=== PATIENT | male | born 1975 ===

== ENCOUNTER 2019-01-22 03:12 | Emergency (ER) | payer SELFPAY ==
[2019-01-22 03:28] VITALS: TEMP 98.1
--- NOTE | 2019-01-22 04:36 | ED PDOC ---
Arrival/HPI - General Chief Complaint: Substance Abuse Time Seen by Provider: 01/22/19 03:27 Historian: Patient - History of Present Illness Narrative History of Present Illness (Text): 01/22/19 04:32 43 year old male, whose past medical history includes substance abuse, presents to the emergency department by EMS, after being found sleeping in the [place] of an apartment building. Patient states he has a history of heroin use, but is on methadone. Patient denies any illicit drug use. Patient states he is homeless and needed a place to sleep. Patient denies any alcohol use. Patient denies any somatic complaints, and is requesting some cereal and milk. Patient denies any fevers, chills, headache, dizziness, chest pain, shortness of breath, dyspnea on exertion, cough, abdominal pain, nausea, vomiting, diarrhea, back p ain, neck pain, or any other complaint. Time/Duration: Prior to Arrival Symptom Onset: Gradual Symptom Course: Unchanged Activities at Onset: Light Context: Street Past Medical History - Provider Review Nursing Documentation Reviewed: Yes - Psychiatric Hx Substance Use: Yes Family/Social History - Physician Review Nursing Documentation Reviewed: Yes Family/Social History: No Known Family HX Smoking Status: Light Smoker < 10 Cigarettes Daily Hx Alcohol Use: Yes Frequency of alcohol use: Socially Hx Substance Use: Yes Substance used: Methadone Allergies/Home Meds Allergies/Adverse Reactions: Allergies No Known Allergies Allergy (Verified 01/22/19 03:21) Home Medications: Home Meds Medication Instructions Recorded Confirmed Unobtainable 01/22/19 01/22/19 Review of Systems - Physician Review All systems were reviewed & negative as marked: Yes - Review of Systems Constitutional: absent: Fevers, Night Sweats Respiratory: absent: SOB, Cough Cardiovascular: absent: Chest Pain, KELLY Gastrointestinal: absent: Abdominal Pain, Diarrhea, Nausea, Vomiting Musculoskeletal: absent: Back Pain, Neck Pain Neurological: absent: Headache, Dizziness Physical Exam Vital Signs Reviewed: Yes Vital Signs Temp Pulse Resp BP Pulse Ox 01/22/19 03:23 98.1 F 61 16 112/63 99 Temperature: Afebrile Blood Pressure: Normal Pulse: Regular Respiratory Rate: Normal Appearance: Positive for: Well-Appearing, Non-Toxic, Comfortable Pain Distress: None Mental Status: Positive for: Alert and Oriented X 3 - Systems Exam Head: Present: Atraumatic, Normocephalic Pupils: Present: PERRL Extroacular Muscles: Present: EOMI Conjunctiva: Present: Normal Mouth: Present: Moist Mucous Membranes Neck: Present: Normal Range of Motion Respiratory/Chest: Present: Clear to Auscultation, Good Air Exchange. No: Respiratory Distress, Accessory Muscle Use Cardiovascular: Present: Regular Rate and Rhythm, Normal S1, S2. No: Murmurs Abdomen: No: Tenderness, Distention, Peritoneal Signs Back: Present: Normal Inspection Upper Extremity: Present: Normal Inspection. No: Cyanosis, Edema Lower Extremity: Present: Normal Inspection. No: Edema Neurological: Present: GCS=15, CN II-XII Intact, Speech Normal Skin: Present: Warm, Dry, Normal Color. No: Rashes Psychiatric: Present: Alert, Oriented x 3, Normal Insight, Normal Concentration - Scribe Statement The provider has reviewed the documentation as recorded by the Scribe Daniel Mena Provider Scribe Attestation: All medical record entries made by the Scribe were at my direction and personally dictated by me. I have reviewed the chart and agree that the record accurately reflects my personal performance of the history, physical exam, medical decision making, and the department course for this patient. I have also personally directed, reviewed, and agree with the discharge instructions and disposition. Disposition/Present on Arrival - Present on Arrival Any Indicators Present on Arrival: No History of DVT/PE: No History of Uncontrolled Diabetes: No Urinary Catheter: No History of Decub. Ulcer: No History Surgical Site Infection Following: None - Disposition Have Diagnosis and Disposition been Completed?: Yes Diagnosis: Substance abuse, Homelessness Disposition: HOME/ ROUTINE Disposition Time: 06:24 Patient Plan: Discharge Condition: GOOD Referrals: [facility] [Outside] - Follow up with primary Forms: [employer] (Lao)
[2019-01-22 05:48] VITALS: RESP 18; O2SAT 98
[2019-01-22 06:50] VITALS: BP 102/60; PULSE 67
== END 2019-01-22 06:44 | disposition home or self-care (01) ==
LOC: ED 03:12
DX: F19.10 Other psychoactive substance abuse, uncomplicated (principal); Z59.0 Homelessness

== ENCOUNTER 2019-01-22 08:58 | Emergency (ER) | payer SELFPAY ==
[2019-01-22 09:01] VITALS: BMI 25.8
[2019-01-22 09:11] VITALS: TEMP 98.4
--- NOTE | 2019-01-22 09:18 | ED PDOC ---
Arrival/HPI <Nikhil Gan - Last Filed: 01/22/19 12:50> - General Historian: Patient - History of Present Illness Narrative History of Present Illness (Text): 01/22/19 09:14 CC: brought in by police/EMS because wandering around street made him look suspicious HPI: 43 yo male w/ PMH of substance abuse on methadone is brought to ED by EMS and police. Of note, patient was brought in last night to ED because he needed a place to sleep and was hungry. Patient was monitored for a few hours and discharge. Patient has no medical complaints. States he was brought in by police and EMS because he looked suspicious for wandering around the streets. Patient states he just wants to sleep and would prefer to be left alone. Patient felt asleep during questioning multiple times. Patient AAOx 3. Denies lightheadedness, dizziness, fevers, chills, chest pain, sob, n/v, constipation or diarrhea, and dysuria. While ED attending was evaluating patient began to complain of visual hallucinations. Pending crisis screen. Symptom Course: Unchanged Activities at Onset: Rest Context: Sitting <Kameron,Madaser - Last Filed: 01/22/19 12:58> - General Chief Complaint: Medical Clearance Time Seen by Provider: 01/22/19 09:06 Past Medical History - Provider Review Nursing Documentation Reviewed: Yes - Psychiatric Hx Substance Use: Yes (on methadone) <Kameron,Madaser - Last Filed: 01/22/19 12:58> Family/Social History - Physician Review Nursing Documentation Reviewed: Yes Family/Social History: No Known Family HX Smoking Status: Light Smoker < 10 Cigarettes Daily Hx Alcohol Use: Yes Hx Substance Use: Yes Substance used: Methadone <Kameron,Madaser - Last Filed: 01/22/19 12:58> Allergies/Home Meds <Nikhil Gan - Last Filed: 01/22/19 12:50> <KameronMadaser - Last Filed: 01/22/19 12:58> Allergies/Adverse Reactions: Allergies No Known Allergies Allergy (Verified 01/22/19 09:31) Home Medications: Home Meds Medication Instructions Recorded Confirmed Unobtainable 01/22/19 01/22/19 Review of Systems - Review of Systems Constitutional: Normal. absent: Fatigue, Weight Change, Fevers Eyes: Normal. absent: Vision Changes, Photophobia, Eye Pain ENT: Normal. absent: Hearing Changes, Tinnitus, TMJ Pain Respiratory: Normal. absent: SOB, Cough, Sputum Cardiovascular: Normal. absent: Chest Pain, Palpitations, Edema Gastrointestinal: Normal. absent: Abdominal Pain, Stool Changes, Constipation Genitourinary Male: Normal. absent: Dysuria, Frequency, Hematuria Musculoskeletal: Normal. absent: Arthralgias, Back Pain, Neck Pain Skin: Normal. absent: Rash, Pruritis, Skin Lesions Neurological: Normal. absent: Headache, Dizziness, Focal Weakness Endocrine: Normal. absent: Diaphoresis, Polyuria, Polydipsia Hemo/Lymphatic: Normal. absent: Adenopathy, Easy Bleeding, Easy Bruising Psychiatric: Normal. absent: Anxiety, Depression <Kameron,Madaser - Last Filed: 01/22/19 12:58> Physical Exam Vital Signs Temp Pulse Resp BP Pulse Ox 01/22/19 09:10 98.4 F 66 16 99/55 L 98 <TolericoNikhil - Last Filed: 01/22/19 12:50> Vital Signs Reviewed: Yes Vital Signs Temp Pulse Resp BP Pulse Ox 01/22/19 09:10 98.4 F 66 16 99/55 L 98 Temperature: Afebrile Blood Pressure: Hypotensive Pulse: Regular Respiratory Rate: Normal Appearance: Positive for: Well-Appearing, Non-Toxic, Comfortable Pain Distress: None Mental Status: Positive for: Alert and Oriented X 3 - Systems Exam Head: Present: Atraumatic, Normocephalic Pupils: Present: PERRL Extroacular Muscles: Present: EOMI Conjunctiva: Present: Normal Mouth: Present: Dry Neck: Present: Normal Range of Motion Respiratory/Chest: Present: Clear to Auscultation, Good Air Exchange. No: Respiratory Distress, Accessory Muscle Use Cardiovascular: Present: Regular Rate and Rhythm, Normal S1, S2. No: Murmurs Abdomen: Present: Normal Bowel Sounds. No: Tenderness, Distention, Peritoneal Signs, Rebound, Guarding Upper Extremity: Present: Normal Inspection. No: Cyanosis, Edema Lower Extremity: Present: Normal Inspection. No: Edema Neurological: Present: GCS=15, CN II-XII Intact, Speech Normal Skin: Present: Warm, Dry, Normal Color. No: Rashes Psychiatric: Present: Alert, Oriented x 3, Normal Insight, Normal Concentration <Kameron,Shant - Last Filed: 01/22/19 12:58> Medical Decision Making ED Course and Treatment: 01/22/19 09:56 Seen and examined with the resident. Our history and physical exam reveals a foul-smelling disheveled individual who reports he is homeless. He was seen in the emergency department early this morning and discharged with a diagnosis of substance abuse. He states that he has not used heroin in several years. He is on a methadone program. He reports he is homeless. He denies suicidal or homicidal ideation, though he states he is depressed. He has visual hallucinations which he describes as circles. No auditory hallucinations. He will be evaluated by crisis. 01/22/19 10:50 EKG shows normal sinus rhythm rate approximately [address] or T wave changes. 01/22/19 12:51 Seen and evaluated by crisis who will discharge. - RAD Interpretation Radiology Orders: 01/22/19 09:43 CHEST PORTABLE [RAD] Stat <Nikhil Gan - Last Filed: 01/22/19 12:50> ED Course and Treatment: 01/22/19 09:21 Impression 43 yo male w/ PMH of substance abuse on methadone is brought to ED by EMS and po lice. Plan -CBC -CMP -EKG -CXR -Salicylate lvl -UDS -Tylenol lvl -Mag -CPK -Alcohol lvl -UA Prior Visits Prior lab work and documentation reviewed prior to evaluation Progress Notes will discharge patient because he has no medical complaints 01/22/19 09:51 During re-evaluation with attending, patient stated he was having visual hallucinations Crisis screen pending 01/22/19 12:55 Crisis screen was completed and recommended discharge Re-evaluation Time: 09:40 Reassessment Condition: Re-examined, Unchanged - Lab Interpretations Lab Results: 01/22/19 11:15 01/22/19 11:15 Lab Results 01/22/19 12:05: Urine Opiates Screen Negative, Urine Methadone Screen Positive H , Ur Barbiturates Screen Negative, Ur Phencyclidine Scrn Negative, Ur Amphetamines Screen Negative, U Benzodiazepines Scrn Negative, U Oth Cocaine Metabols Negative, U Cannabinoids Screen Positive H 01/22/19 12:05: Urine Color Yellow, Urine Appearance Clear, Urine pH 7.0, Ur Specific [place] 1.020, Urine Protein Negative, Urine Glucose (UA) Negative, Urine Ketones Negative, Urine Blood Negative, Urine Nitrate Negative, Urine Bilirubin Negative, Urine Urobilinogen 0.2, Ur Leukocyte Esterase Negative 01/22/19 11:15: Alcohol, Quantitative < 10 01/22/19 11:15: Salicylates < 1 L, Acetaminophen < 10.0 L 01/22/19 11:15: Sodium 139, Potassium 4.2, Chloride 106, Carbon Dioxide 28, Anion Gap 10, BUN 14, Creatinine 0.5 L, Est GFR ( Amer) > 60, Est GFR (Non-Af Amer) > 60, Random Glucose 95, Calcium 8.8, Magnesium 2.4 H, Total Bilirubin < 0.1 L, AST 15 L, ALT 27, Alkaline Phosphatase 78, Total Creatine Kinase 72, Total Protein 6.0, Albumin 3.4, Globulin 2.6, Albumin/Globulin Ratio 1.3 01/22/19 11:15: WBC 6.5, RBC 4.08, Hgb 12.0 L, Hct 36.6 L, MCV 89.7, MCH 29.4, MCHC 32.8, RDW 12.9, Plt Count 268, MPV 9.1, Neut % (Auto) 60.5, Lymph % (Auto) 33.5, Simpson % (Auto) 3.8, Eos % (Auto) 1.7, Baso % (Auto) 0.5, Lymph # (Auto) 2.2, Simpson # (Auto) 0.3, Eos # (Auto) 0.1, Baso # (Auto) 0.03, Absolute Neuts (auto) 3.96 I have reviewed the lab results: Yes Interpretation: All labs normal <Shant Melo - Last Filed: 01/22/19 12:58> Disposition/Present on Arrival - Present on Arrival Any Indicators Present on Arrival: No History of DVT/PE: No History of Uncontrolled Diabetes: No Urinary Catheter: No History of Decub. Ulcer: No - Disposition Have Diagnosis and Disposition been Completed?: Yes Disposition Time: 12:52 Patient Plan: Discharge <Nikhil Gan - Last Filed: 01/22/19 12:50> - Present on Arrival Any Indicators Present on Arrival: No History of DVT/PE: No History of Uncontrolled Diabetes: No Urinary Catheter: No History Surgical Site Infection Following: None - Disposition Have Diagnosis and Disposition been Completed?: Yes Patient Plan: Discharge <Shant Melo - Last Filed: 01/22/19 12:58> - Disposition Diagnosis: Substance abuse, Homelessness Disposition: HOME/ ROUTINE Patient Problems: Current Active Problems Problem Status Onset Substance abuse Acute Homelessness Acute Condition: FAIR Discharge Instructions (ExitCare): Drug Abuse and Drug Addiction (DC) Additional Instructions: 1. Please follow up with primary medical doctor within 3-7 days of discharge from hospital. 2. Please return to hospital if symptoms worsen or recur. Forms: [employer] (Surinamese)
--- NOTE | 2019-01-22 10:31 | RAD ---
Date of service: 01/22/2019 HISTORY: PES COMPARISON: No prior. TECHNIQUE: 1 view obtained. FINDINGS: LUNGS: No active pulmonary disease. PLEURA: No significant pleural effusion identified, no pneumothorax apparent. CARDIOVASCULAR: No aortic atherosclerotic calcification present. Normal cardiac size. No pulmonary vascular congestion. OSSEOUS STRUCTURES: No significant abnormalities. VISUALIZED UPPER ABDOMEN: Normal. OTHER FINDINGS: None. IMPRESSION: No acute cardiopulmonary disease appreciated.
[2019-01-22 11:29] LABS: BASO # 0.03 K/mm3 (0.0-2.0); BASO % 0.5 % (0.0-3.0); EOS # 0.1 (0.0-0.7); EOS % 1.7 % (1.5-5.0); LYMPH # 2.2 (1.2-3.4); LYMPH % 33.5 % (22.0-35.0); MEAN CELL VOLUME 89.7 fl (80.0-105.0); MEAN CORPUSCULAR HEMOGLOBIN 29.4 pg (25.0-35.0); MEAN CORPUSCULAR HGB CONC 32.8 g/dl (31.0-37.0); MEAN PLATELET VOLUME 9.1 fl (7.0-11.0); MONO # 0.3 (0.1-0.6); MONO % 3.8 % (1.0-6.0); RBC 4.08 10^6/uL (3.5-6.1); RED CELL DISTRIBUTION WIDTH 12.9 % (11.5-14.5); WHITE BLOOD COUNT 6.5 10^3/uL (4.5-11.0)
[2019-01-22 11:38] LABS: ACETAMINOPHEN < 10.0 ug/ml (10.0-20.0); SALICYLATE < 1 mg/dL (2.0-20.0)
[2019-01-22 11:40] LABS: ALB/GLOB RATIO 1.3 (1.1-1.8); ALBUMIN 3.4 g/dL (3.0-4.8); ALT/SGPT 27 U/L (7-56); AST/SGOT 15 U/L (17-59); BLOOD UREA NITROGEN 14 mg/dL (7-21); CALCIUM 8.8 mg/dL (8.4-10.5); GFR NON-AFRICAN AMERICAN > 60
[2019-01-22 12:02] VITALS: BP 123/64; PULSE 58; RESP 15; O2SAT 99
[2019-01-22 12:20] LABS: URINE BILIRUBIN NEGATIVE (NEGATIVE); URINE BLOOD NEGATIVE (NEGATIVE); URINE GLUCOSE (UA) NEGATIVE (NEGATIVE); URINE LEUKOCYTE ESTERASE NEGATIVE Leu/uL (NEGATIVE); URINE PROTEIN NEGATIVE mg/dL (<30 mg/dL); URINE UROBILINOGEN 0.2 E.U./dL (<1 E.U./dL)
[2019-01-22 12:27] LABS: URINE APPEARANCE CLEAR (CLEAR); URINE COLOR YELLOW (YELLOW)
[2019-01-22 12:46] LABS: BARBITURATES, UR NEGATIVE (NEGATIVE); BENZODIAZEPINES, UR NEGATIVE (NEGATIVE); OPIATES, UR NEGATIVE (NEGATIVE); PHENCYCLIDINE, UR NEGATIVE (NEGATIVE)
--- NOTE | 2019-01-22 20:36 | CARD ---
APPROVED REPORT Date of service: 01/22/2019 EKG Measurement Heart [id number] <Conclusion> Sinus bradycardia Otherwise normal ECG
== END 2019-01-22 13:09 | disposition home or self-care (01) ==
LOC: ED 08:58
DX: F19.10 Other psychoactive substance abuse, uncomplicated (principal); Z59.0 Homelessness
CPT/HCPCS: 71045; 80053; 81003; 82550; 83735; 85025; 93005; 99284; G0480